=== PATIENT | male | born 1995 | race Caucasian/White ===

== ENCOUNTER 2016-11-19 12:30 | Emergency (ER) | payer MEDICAID ==
[2015-05-12 14:43] VITALS: BMI 24.5
--- NOTE | 2016-11-19 21:47 | RAD ---
PROCEDURE: Right knee two views HISTORY: Unspecified right knee injury COMPARISON: None TECHNIQUE: Standard protocol for this study/examination. FINDINGS: Negative study for fracture No appreciable degenerative change. No joint effusion identified. No visualized, radiopaque loose bodies. IMPRESSION: No significant or acute findings to account for/ related to the clinical presentation.
== END 2016-11-21 09:30 | disposition home or self-care (01) ==
LOC: ED 12:30
DX: S83.91XA Sprain of unspecified site of right knee, initial encounter (principal); X50.0XXA Overexertion from strenuous movement or load, initial encounter; Y93.66 Activity, soccer; Y92.39 Other specified sports and athletic area as the place of occurrence of the external cause